=== PATIENT | male | born 1985 | race African-American/Black ===

== ENCOUNTER 2016-11-26 19:51 | Emergency (ER) | payer OTHER ==
[~2016-11-26] VITALS: Ht 180.3 cm; Wt 136.1 kg
[~2016-11-26 19:51] MED LIST: COZAAR 50 MG TA50 MG; KEFLEX500 MG PO; NOHOMEMEDICATIONS
[2016-11-26] MEDS ORDERED: EFFEXOR 5050 MG/1 T1 PO (20:01)
[2016-11-26] MEDS ORDERED: TRIUMEQ TABLET1 EACH PO (20:01)
[2016-11-26] MEDS ORDERED: CIPRODEX OTIC7.5 ML OTIC (20:27)
[2016-11-26 20:45] VITALS: BP 152/90
== END 2016-11-26 20:45 | disposition home or self-care (01) ==
LOC: ER 19:51
DX: H60.92 Unspecified otitis externa, left ear (principal); I10 Essential (primary) hypertension; Z21 Asymptomatic human immunodeficiency virus [HIV] infection status

== ENCOUNTER 2017-02-14 21:32 | Emergency (ER) | payer OTHER ==
[~2017-02-14] VITALS: Ht 180.3 cm; Wt 127.0 kg
[~2017-02-14 21:32] MED LIST changes: +CIPRODEX OTIC7.5 ML OTIC; +EFFEXOR 5050 MG/1 T1 PO; +TRIUMEQ TABLET1 EACH PO
[2017-02-14] MEDS ORDERED: DOXYCYCLINE 10100 MG PO (22:14)
[2017-02-14 22:32] VITALS: BP 133/91
== END 2017-02-14 22:36 | disposition home or self-care (01) ==
LOC: ER 21:32
DX: L02.212 Cutaneous abscess of back [any part, except buttock and flank] (principal); I10 Essential (primary) hypertension; Z21 Asymptomatic human immunodeficiency virus [HIV] infection status